=== PATIENT | female | born 1960 | race Caucasian/White ===

== ENCOUNTER → 2017-05-04 | Outpatient (CLI) | payer OTHER ==
[~2017-05-04] MED LIST: CLARITIN 10MG T10 MG PO; DICLOFENAC POTA50 MG PO; FISH OIL 1,0001 EAC1 PO; HYDROCHLOROTHIA25 MG PO; LISINOPRIL10 MG PO; NORCO 5-325 TA1 EACH PO; POTASSIUM CHLO20 ME2 PO
[2017-05-04 08:12] LABS: HEMOGLOBIN 13.4 gm/dl (12.3-15.3); RED BLOOD COUNT 4.76 M/UL (4.00-5.10); WHITE BLOOD COUNT 7.5 K/UL (4.5-11.0)
[2017-05-04 08:27] LABS: BUN/CREATININE RATIO 20 (0-10)
== END ==
LOC: OPSV2 07:36
PROVIDERS: Obstetrics & Gynecology
DX: Z01.812 Encounter for preprocedural laboratory examination (principal); N84.0 Polyp of corpus uteri; Z88.2 Allergy status to sulfonamides
CPT/HCPCS: 36415; 80048; 85025; 93005

== ENCOUNTER → 2017-05-13 | Day surgery (SDC) | payer OTHER ==
[~2017-05-13] VITALS: Ht 170.2 cm; Wt 123.4 kg
== END | disposition home or self-care (01) ==
LOC: OR 06:40
PROVIDERS: Obstetrics & Gynecology
PROC: 0UDB8ZZ Extraction of Endometrium, Via Natural or Artificial Opening Endoscopic (ICD-10-PCS; 2017-05-13)
PROC: 0UBC8ZZ Excision of Cervix, Via Natural or Artificial Opening Endoscopic (ICD-10-PCS; principal; 2017-05-13 08:15)
DX: N84.0 Polyp of corpus uteri (principal); R93.8 Abnormal findings on diagnostic imaging of other specified body structures; I10 Essential (primary) hypertension; M19.90 Unspecified osteoarthritis, unspecified site; Z88.2 Allergy status to sulfonamides; Z79.899 Other long term (current) drug therapy; Z98.51 Tubal ligation status; Z88.8 Allergy status to other drugs, medicaments and biological substances
CPT/HCPCS: J1100; J1885; J2250; J2405; J2765; J2795; J3010; J7120